=== PATIENT | female | born 1990 | race Hispanic/Latino ===

== ENCOUNTER 2020-03-28 13:10 | Emergency (ER) | payer MEDICAID, OTHER ==
[2020-03-28] MEDS ORDERED: HYDROCODONE/ACETAMINOPHEN 10/325 MG TAB ONE (13:24)
== END 2020-03-28 14:50 | disposition home or self-care (01) ==
LOC: EDH 13:10
DX: T24.202A Burn of second degree of unspecified site of left lower limb, except ankle and foot, initial encounter (principal); T31.0 Burns involving less than 10% of body surface; S82.145A Nondisplaced bicondylar fracture of left tibia, initial encounter for closed fracture; S82.455A Nondisplaced comminuted fracture of shaft of left fibula, initial encounter for closed fracture; Z72.0 Tobacco use; X58.XXXA Exposure to other specified factors, initial encounter; Y93.89 Activity, other specified; Y92.89 Other specified places as the place of occurrence of the external cause; Y99.8 Other external cause status
CPT/HCPCS: 29505; 73552; 73590